=== PATIENT | female | born 1950 | race Caucasian/White ===

== ENCOUNTER 2020-05-08 14:13 | Emergency (ER) | payer OTHER ==
[~2020-05-08] VITALS: Ht 175.3 cm; Wt 107.5 kg
[~2020-05-08 14:13] MED LIST: AZO1 EACH; GABAPENTIN300 MG PO; LEXAPRO10 MG PO; SINEMET 10-1001 EACH; WARFARIN SODIUM5 MG
--- NOTE | 2020-05-08 14:30 | Emergency Department Note ---
History of Present Illnes History of Present Illness Chief Complaint: General Medicine Complaints History of Present Illness This is a 70 year old female . Historian: Patient Arrival Mode: Car Onset (how long ago): day(s) (has had a blister in left foot for 1 week started hurting 2 days ago no drainage, no COVID 19 symptoms as she was walking in [place] 7 days ago without a mask. She has [facility] MD Dr Bailey who she is going to see Sunday at 7;30 AM) Severity: mild Onset quality: gradual Duration (how long): day(s) (worse 2 days) Progression: worsening Context: Reports recent travel Relieving factors: immobilization Exacerbating factors: movement Associated symptoms: Reports fever/chills Treatments prior to arrival: none Past Medical/Family History Physician Review I have reviewed the patient's past medical and family history. Any updates have been documented here. Past Medical History Recent Fever: Yes New/Unexplained Change in Ment: No Past Medical History: Diabetes, Kidney Stones, DVT/PE Other Medical History: neuropathy Past Surgical History: Back Surgery Other Surgery: hemorrhoidectomy tummy tuck - 2013 back surgery - 1977 Social History Smoking Cessation: Never Smoker Alcohol Use: None Any Illegal Drug Use: No Review of Systems Review of Systems Constitutional: Reports fever (low grade no anti pyretics) Musculoskeletal: Reports as per HPI Review of other systems: All other systems negative Physical Exam Related Data Allergies: Coded Allergies: codeine (Verified Adverse Reaction, Mild, itching/hives, 11/27/19) Vital signs reviewed: Yes Physical Exam CONSTITUTIONAL Constitutional: Present well-developed, Present well-nourished; Absent distressed, Absent ill appearing HENT HENT: Present normocephalic EYES Eyes: Reports conjunctivae normal NECK Neck: Present supple PULMONARY Pulmonary: Present effort normal, Present breath sounds normal; Absent respiratory distress CARDIOVASCULAR Cardiovascular: Present regular rhythm GASTROINTESTINAL Abdominal: Present soft GENITOURINARY SKIN Skin: Present warm, Present dry MUSCULOSKELETAL Musculoskeletal: Present other (left foot at the plantar aspect she has a small ulcer with mild erythema no draiange expressed, normal pulses) NEUROLOGICAL Neurological: Present alert PSYCHOLOGICAL Psychological: Present mood/affect normal Results Laboratory Laboratory WBC 12.1 and Platelets 94,000 otherwise normal Wound Culture sent BMP Gluc of 291 Lab results reviewed: Yes Assessment & Plan Medical Decision Making MDM cellulitis, abscess, osteo, diabetic ulcer Assessment & Plan Final Impression: (1) Diabetic ulcer of foot associated with diabetes mellitus due to underlying condition, limited to breakdown of skin (2) Cellulitis (3) Hyperglycemia due to diabetes mellitus (4) Thrombocytopenia Depart Disposition: HOME, SELF-skilled nursing Meds Active Scripts Amoxicillin/Potassium Clav (AUGMENTIN 875-125 TABLET) 1 Each Tablet, 1 EACH PO BID, #20 Prov:ANYA BEE MD 05/08/20 Reported Medications Carbidopa/Levodopa (SINEMET 10-100 MG TABLET) 1 Each Tablet, DAILY 11/27/19 Escitalopram Oxalate (LEXAPRO) 10 Mg Tablet, 10 MG PO DAILY, #30 TAB 11/27/19 Warfarin Sodium (COUMADIN) 5 Mg Tablet, DAILY 11/27/19 Gabapentin (GABAPENTIN) 300 Mg Capsule, 300 MG PO BID, #60 CAP 11/27/19 Urine Leukocyte Test (AZO) 1 Each Strip 11/27/19 ANYA BEE MD May 08, 2020 14:30
[2020-05-08] MEDS ORDERED: AUGMENTIN 875-1 EACH PO (14:50)
[2020-05-08] MEDS ORDERED: AMOXICILLIN/CLAVULANATE K 875 MG TAB PO STA (14:55)
== END 2020-05-08 15:26 | disposition home or self-care (01) ==
LOC: FSED 14:13
DX: E11.621 Type 2 diabetes mellitus with foot ulcer (principal); L97.521 Non-pressure chronic ulcer of other part of left foot limited to breakdown of skin; E11.65 Type 2 diabetes mellitus with hyperglycemia; E11.40 Type 2 diabetes mellitus with diabetic neuropathy, unspecified; L03.116 Cellulitis of left lower limb; D69.6 Thrombocytopenia, unspecified; Z86.718 Personal history of other venous thrombosis and embolism
CPT/HCPCS: 87071; 87205; 99283